=== PATIENT | female | born 1975 | race African-American/Black ===

== ENCOUNTER 2017-04-22 13:57 | Emergency (ER) | payer OTHER ==
[2017-04-22 14:05] VITALS: BP 149/108; PULSE 79; TEMP 98; BMI 37.5
[2017-04-22] MEDS ORDERED: KETOROLAC TROMETHAMINE 60 MG/2 ML VIAL ONE (14:53)
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
[2017-04-22] MEDS ORDERED: KETOROLAC TROMETHAMINE 60 MG/2 ML VIAL IM ONE (15:01)
== END 2017-04-22 15:17 | disposition home or self-care (01) ==
LOC: JERFT 13:57
PROC: 3E0233Z Introduction of Anti-inflammatory into Muscle, Percutaneous Approach (ICD-10-PCS; principal; 2017-04-22)
DX: L20.9 Atopic dermatitis, unspecified (principal); M54.5 Low back pain; M79.605 Pain in left leg; F17.210 Nicotine dependence, cigarettes, uncomplicated
CPT/HCPCS: 99281-25

== ENCOUNTER 2017-06-19 17:13 | Emergency (ER) | payer OTHER ==
[2017-06-19 17:20] VITALS: BP 152/86; PULSE 83; TEMP 98; BMI 40.3
--- NOTE | 2017-06-19 18:07 | PDOC ---
History of Present Illness - General Chief Complaint: Rash Stated Complaint: RASH Time Seen by Provider: 06/19/17 17:46 History Source: Patient Exam Limitations: No Limitations - History of Present Illness Initial Comments: 06/19/17 18:06 CHIEF COMPLAINT: Here for refill of cream for eczema. HISTORY OF PRESENT ILLNESS: Patient is an otherwise healthy 41-year-old female with history of eczema to bilateral upper extremities, states she hadn't point with dermatology this week missed her appointment and is unable to get another prescription or another visit for 3 months. Patient denies any fever, no secondary signs of infection. Severity: Yes: moderate Modifying Factors: improves with: topical steriods Associated Symptoms: reports: rash. denies: blisters Past History - Past Medical History Allergies/Adverse Reactions: Allergies Allergy/AdvReac Type Severity Reaction Status Date / Time No Known Drug Allergies Allergy Mild Verified 06/19/17 17:20 orange juice [[place] Juice] Allergy Verified 06/19/17 17:20 strawberry Allergy Verified 06/19/17 17:20 citrus AdvReac Unknown Uncoded 06/19/17 17:20 Home Medications: Ambulatory Orders Triamcinolone 0.1% Cream [Aristocort 0.1% Cream -] 1 applic TP TID #1 tube 06/19 Anemia: No Asthma: No Cancer: No Cardiac Disorders: No CVA: No COPD: No CHF: No Dementia: No Diabetes: No GI Disorders: No Disorders: No HTN: No Hypercholesterolemia: No Liver Disease: No Seizures: No Thyroid Disease: No Other medical history: ECZEMA - Surgical History Abdominal Surgery: Yes Appendectomy: No Cardiac Surgery: No Cholecystectomy: No Lung Surgery: No Neurologic Surgery: No Orthopedic Surgery: No - Psycho/Social/Smoking Cessation Hx Anxiety: No Suicidal Ideation: No Smoking Status: Yes Smoking History: Current some day smoker Have you smoked in the past 12 months: Yes Number of Cigarettes Smoked Daily: 3 Information on smoking cessation initiated: No 'Breaking Loose' booklet given: 07/06/16 Hx Alcohol Use: No Drug/Substance Use Hx: No Substance Use Type: Alcohol Review of Systems - Review of Systems Constitutional: No: Symptoms Reported Integumentary: Yes: Rash Neurological: No: Symptoms reported Hematologic/Lymphatic: No: Symptoms Reported All Other Systems: Reviewed and Negative *Physical Exam - Vital Signs Last Vital Signs Temp Pulse Resp BP Pulse Ox 98 F 83 18 152/86 99 06/19/17 17:17 06/19/17 17:17 06/19/17 17:17 06/19/17 17:17 06/19/17 17:17 - Physical Exam General Appearance: Yes: Appropriately Dressed. No: Apparent Distress Respiratory/Chest: positive: Lungs Clear, Normal Breath Sounds Cardiovascular: positive: Regular Rhythm, Regular Rate Lymphatic: negative: Adenopathy Musculoskeletal: positive: Normal Inspection Extremity: positive: Normal Inspection, Normal Range of Motion. negative: Swelling, Erythema, Inflammation Integumentary: positive: Rash (dry, plaque-like rash to bilateral upper extremities). negative: Erythema, Swelling, Ecchymosis, Bruising Neurologic: positive: Alert, Normal Mood/Affect Medical Decision Making - Medical Decision Making 06/19/17 18:12 A/P: Patient here for evaluation of eczema and prescription renewal for Triaminicalone, will give patient prescription to follow-up with dermatology *DC/Admit/Observation/Transfer Diagnosis at time of Disposition: Eczema Qualifiers: Eczema type: other Qualified Code(s): L30.8 - Other specified dermatitis - Discharge Dispostion Disposition: HOME Condition at time of disposition: Good Admit: No - Prescriptions Prescriptions: Triamcinolone 0.1% Cream [Aristocort 0.1% Cream -] 1 applic TP TID #1 tube - Referrals Referrals: Katie Willingham MD [Primary Care Provider] - Humberto Rojas [Non Staff, Medical] - ([phone]) - Patient Instructions Printed Discharge Instructions: Eczema
== END 2017-06-19 18:33 | disposition home or self-care (01) ==
LOC: JERFT 17:13
DX: L30.8 Other specified dermatitis (principal); Z76.0 Encounter for issue of repeat prescription
CPT/HCPCS: 99281-25

== ENCOUNTER 2018-03-01 08:55 | Emergency (ER) | payer OTHER ==
[2018-03-01 09:06] VITALS: BP 135/71; PULSE 107; TEMP 98.4; BMI 39.3
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
[2018-03-01] MEDS ORDERED: ACETAMINOPHEN 325 MG TABLET (FP) PO ONE (09:46)
[2018-03-01] MEDS ORDERED: ACETAMINOPHEN 325 MG TABLET (FP) ONE (09:49)
== END 2018-03-01 09:50 | disposition home or self-care (01) ==
LOC: JERFT 08:55
DX: O26.899 Other specified pregnancy related conditions, unspecified trimester (principal); M25.552 Pain in left hip
CPT/HCPCS: 99281-25

== ENCOUNTER 2018-11-26 15:49 | Emergency (ER) | payer OTHER ==
[2018-11-26 16:12] VITALS: BP 171/88; PULSE 86; TEMP 98.6; BMI 43.0
[2018-11-26] MEDS ORDERED: KETOROLAC TROMETHAMINE 30 MG/1 ML VIAL IM ONE (17:11)
[2018-11-26] MEDS ORDERED: KETOROLAC TROMETHAMINE 30 MG/1 ML VIAL ONE (17:20)
--- NOTE | 2018-11-26 17:28 | PDOC ---
History of Present Illness - General Chief Complaint: Pain Stated Complaint: LT LEG PAIN Time Seen by Provider: 11/26/18 16:10 History Source: Patient Exam Limitations: No Limitations - History of Present Illness Initial Comments: 11/26/18 17:22 43 year old female with a history of HTN and 2 c-sections, present with exacerbation of chronic pain to left hip. State pain worse since delivery of 5 month old daughter. Complaining of pain with weight bearing and walking. Denies numbness or tingling in lower limb. Occurred: reports: last week Severity: Yes: moderate Lower Extremity Pain Location: left: hip Method of Injury: Yes: unknown Modifying Factors: improves with: pain medication Lower Ext. Injury Location - Specific Injury Location Hips: bilateral hip: no evidence of injury Legs: bilateral: normal inspection Knees: bilateral no evidence of injury Ankle: bilateral no evidence of injury Foot: bilateral foot no evidence of injury Extremity Pain Location - Extremity Pain Location Extremity Pain Locations: left: hip Past History - Past Medical History Allergies/Adverse Reactions: Allergies Allergy/AdvReac Type Severity Reaction Status Date / Time No Known Drug Allergies Allergy Mild Verified 11/26/18 16:06 orange juice [[place] Juice] Allergy Verified 11/26/18 16:06 strawberry Allergy Verified 11/26/18 16:06 citrus AdvReac Unknown Uncoded 11/26/18 16:06 Home Medications: Ambulatory Orders Ibuprofen 600 mg PO TID #20 tablet 11/26/18 Anemia: No Asthma: No Cancer: No Cardiac Disorders: No CVA: No COPD: No CHF: No Dementia: No Diabetes: No GI Disorders: No Disorders: No HTN: No Hypercholesterolemia: No Liver Disease: No Seizures: No Thyroid Disease: No - Surgical History Abdominal Surgery: Yes Appendectomy: No Cardiac Surgery: No Cholecystectomy: No Lung Surgery: No Neurologic Surgery: No Orthopedic Surgery: No - Immunization History Immunization Up to Date: Yes - Suicide/Smoking/Psychosocial Hx Smoking Status: Yes Smoking History: Never smoked Have you smoked in the past 12 months: No Number of Cigarettes Smoked Daily: 3 Information on smoking cessation initiated: No 'Breaking Loose' booklet given: 07/06/16 Hx Alcohol Use: No Drug/Substance Use Hx: No Substance Use Type: Alcohol Review of Systems - Review of Systems Able to Perform ROS?: Yes Is the patient limited Green[place]ic proficient: No Constitutional: No: Chills, Fever HEENTM: No: Ear Pain, Throat Pain, Throat Swelling Respiratory: No: Shortness of Breath, Productive cough Cardiac (ROS): No: Chest Pain, Lightheadedness, Palpitations ABD/GI: No: Poor Appetite, Indigestion, Abdominal cramping : No: Dysuria, Hematuria, Incontinence Musculoskeletal: Yes: Other (hip pain ) Neurological: No: Headache, Numbness, Paresthesia, Tingling *Physical Exam - Vital Signs Last Vital Signs Temp Pulse Resp BP Pulse Ox 98.6 F 86 17 171/88 H 99 11/26/18 16:07 11/26/18 16:07 11/26/18 16:07 11/26/18 16:07 11/26/18 16:07 - Physical Exam General Appearance: Yes: Nourished, Appropriately Dressed. No: Apparent Distress HEENT: positive: SH[place], Normal ENT Inspection, TMs Normal, Pharynx Normal Neck: positive: Supple. negative: Lymphadenopathy (R), Lymphadenopathy (L) Respiratory/Chest: positive: Lungs Clear, Normal Breath Sounds Cardiovascular: positive: Regular Rhythm, Regular Rate, S1, S2 Extremity: positive: Swelling, Other (left hip with small amount of swelling, no bruising or tenderness) Neurologic: positive: Fully Oriented, Motor Strength 5/5 Moderate Sedation - Procedure Monitoring Vital Signs: Procedure Monitoring Vital Signs Temperature 98.6 F 11/26/18 16:07 Pulse Rate 86 11/26/18 16:07 Respiratory Rate 17 11/26/18 16:07 Blood Pressure 171/88 H 11/26/18 16:07 O2 Sat by Pulse Oximetry (%) 99 11/26/18 16:07 Medical Decision Making - Medical Decision Making 11/26/18 17:26 43 year old female with a history of HTN and 2 c-sections, present with exacerbation of chronic pain to lower back radiating to lateral left hip. Plan toradol im Rx: ibuprofen 11/26/18 17:28 *DC/Admit/Observation/Transfer Diagnosis at time of Disposition: Lumbar pain with radiation down left leg - Discharge Dispostion Disposition: HOME Condition at time of disposition: Good Decision to Admit order: No - Prescriptions Prescriptions: Ibuprofen 600 mg PO TID #20 tablet - Referrals Referrals: Kane Mora MD [Primary Care Provider] - - Patient Instructions Printed Discharge Instructions: DI for Sciatica Additional Instructions: Activity as tolerated May apply warm compress to lower back for 20 minutes 3 to 4 times day Call ortho for follow up appointment - Post Discharge Activity Forms/Work/School Notes: Back to Work
== END 2018-11-26 17:42 | disposition home or self-care (01) ==
LOC: JERFT 15:49
PROC: 3E0233Z Introduction of Anti-inflammatory into Muscle, Percutaneous Approach (ICD-10-PCS; principal; 2018-11-26)
DX: M54.16 Radiculopathy, lumbar region (principal); I10 Essential (primary) hypertension
CPT/HCPCS: 96372; 99281-25

== ENCOUNTER 2023-11-28 02:28 | Emergency (ER) | payer OTHER ==
[2023-11-28 02:39] VITALS: BP 174/95; PULSE 81; RESP 20; TEMP 98.7; BMI 37.4
[2023-11-28] MEDS ORDERED: DIPHTH,PERTUSS(ACELL),TET 0.5 ML DISP.SYRIN IM ONE ×2 (03:23→04:04)
[2023-11-28] MEDS ORDERED: AMOX TR/POT CLAV 875MG/125MG TABLETS (FP) PO ONE (03:24)
[2023-11-28] MEDS ORDERED: AMOX TR/POT CLAV 875MG/125MG TABLETS (FP) ONE (04:03)
== END 2023-11-28 05:15 | disposition home or self-care (01) ==
LOC: JER 02:28
PROC: 3E0234Z Introduction of Serum, Toxoid and Vaccine into Muscle, Percutaneous Approach (ICD-10-PCS; principal; 2023-11-28)
DX: M79.642 Pain in left hand (principal); L23.9 Allergic contact dermatitis, unspecified cause; Y04.1XXA Assault by human bite, initial encounter
CPT/HCPCS: 73130-TC-LT-FY; 90471; 90715; 99283-25